=== PATIENT | male | born 1965 | race Caucasian/White ===

== ENCOUNTER → 2020-07-24 | Outpatient (CLI) | payer MEDICARE | LOC: HEART CORB 07-17 08:00 | DX: I20.8 Other forms of angina pectoris (principal); E11.9 Type 2 diabetes mellitus without complications; R06.02 Shortness of breath; I08.0 Rheumatic disorders of both mitral and aortic valves | CPT/HCPCS: 78452; 93306; A9502 ==

== ENCOUNTER 2021-03-24 16:19 | Inpatient (IN) | payer MEDICARE ==
[~2021-03-24] VITALS: Ht 180.3 cm; Wt 118.4 kg
[2021-03-24 18:19] LABS: HEMOGLOBIN 10.5 gm/dl (14.0-17.5); RED BLOOD COUNT 3.97 M/UL (4.20-5.50); WHITE BLOOD COUNT 11.1 K/UL (4.5-11.0)
[2021-03-24 18:53] LABS: BUN/CREATININE RATIO 30 (0-10)
[2021-03-25 06:36] LABS: HEMOGLOBIN 10.3 gm/dl (14.0-17.5); RED BLOOD COUNT 3.97 M/UL (4.20-5.50); WHITE BLOOD COUNT 11.2 K/UL (4.5-11.0)
[2021-03-25 06:44] LABS: BUN/CREATININE RATIO 29 (0-10)
[2021-03-25] MEDS ORDERED: CEFEPIME HCL2 GM INJ (09:53)
[2021-03-25] MEDS ORDERED: DESOWEN60 GM TP (09:54)
[2021-03-25] MEDS ORDERED: BUTALB-ACETAMI1 EAC1 PO (09:54)
[2021-03-25] MEDS ORDERED: HYDRALAZINE HCL10 MG PO (09:55)
[2021-03-25] MEDS ORDERED: IBU800 MG PO (09:55)
[2021-03-25] MEDS ORDERED: CLONIDINE HCL0.1 MG PO (09:55)
[2021-03-25] MEDS ORDERED: PANTOPRAZOLE SO20 MG PO (09:56)
[2021-03-25] MEDS ORDERED: ONDANSETRON ODT8 MG PO (09:56)
[2021-03-25] MEDS ORDERED: HYDROCODON-ACE1 EAC6 PO (09:57)
[2021-03-25] MEDS ORDERED: GABAPENTIN600 MG PO (09:57)
[2021-03-25] MEDS ORDERED: TIZANIDINE HCL4 MG PO (09:58)
[2021-03-25] MEDS ORDERED: HUMALOG100 UNIT/1 SQ (10:00)
[2021-03-26 05:21] LABS: HEMOGLOBIN 11.1 gm/dl (14.0-17.5); WHITE BLOOD COUNT 11.5 K/UL (4.5-11.0)
[2021-03-26 05:32] LABS: RED BLOOD COUNT 4.42 M/UL (4.20-5.50)
[2021-03-26 06:02] LABS: BUN/CREATININE RATIO 24 (0-10)
[2021-03-28 07:19] LABS: HEMOGLOBIN 10.5 gm/dl (14.0-17.5); RED BLOOD COUNT 4.06 M/UL (4.20-5.50); WHITE BLOOD COUNT 11.3 K/UL (4.5-11.0)
[2021-03-29 03:53] LABS: HEMOGLOBIN 10.2 gm/dl (14.0-17.5); RED BLOOD COUNT 3.93 M/UL (4.20-5.50)
[2021-03-30 12:15] LABS: RED BLOOD COUNT 3.82 M/UL (4.20-5.50); WHITE BLOOD COUNT 12.6 K/UL (4.5-11.0)
[2021-03-31 07:43] LABS: HEMOGLOBIN 10.3 gm/dl (14.0-17.5); RED BLOOD COUNT 3.94 M/UL (4.20-5.50); WHITE BLOOD COUNT 14.3 K/UL (4.5-11.0)
--- NOTE | 2021-03-31 15:42 | NUR ---
DRESSING CHANGE DONE PER MD ORDER
[2021-04-01 06:50] LABS: HEMOGLOBIN 9.4 gm/dl (14.0-17.5); RED BLOOD COUNT 3.6 M/UL (4.20-5.50); WHITE BLOOD COUNT 11.6 K/UL (4.5-11.0)
--- NOTE | 2021-04-01 14:20 | NUR ---
DRESSING CHANGED TO BILATERAL FEET PER MD ORDER
[2021-04-04] MEDS ORDERED: PANTOPRAZOLE SO20 MG PO (08:56)
[2021-04-04] MEDS ORDERED: BUTALB-ACETAMI1 EAC1 PO (08:56)
[2021-04-04] MEDS ORDERED: HUMALOG 10100 UNITS/ SC ×2 (09:07→12:51)
[2021-04-04] MEDS ORDERED: GABAPENTIN400 MG PO (09:07)
[2021-04-04] MEDS ORDERED: LOPRESSOR 50 MG50 MG PO (09:07)
[2021-04-04] MEDS ORDERED: LANTUS INS100 UTS/M1 SC (09:07)
[2021-04-04] MEDS ORDERED: OXYCONTIN20 MG PO (13:02)
[2021-04-04] MEDS ORDERED: PERCOCET 5/325 T1 EA PO (13:02)
[2021-04-04] MEDS ORDERED: LEVAQUIN I750 MG/150 IV (13:31)
[2021-04-04] MEDS ORDERED: AMPICILLIN-SULBA3 GM INJ (13:34)
--- NOTE | 2021-04-04 14:29 | NUR ---
WOUND CARE PERFORMED PER PHYSICIAN'S ORDER, PATIENT TOLERATED WELL.
--- NOTE | 2021-04-04 15:08 | NUR ---
REPORT CALLED TO LIBIA AT [facility].
== END 2021-04-04 14:46 | DRG 616 ==
LOC: ER1 16:19 → CDU 22:10 → M/S 22:10 → PROG CARE 03-25 09:57 → M/S 03-27 16:00
PROVIDERS: Internal Medicine; Physician Assistant Medical; Podiatrist Foot & Ankle Surgery; ADMIT Internal Medicine
PROC: 0JBQ0ZZ Excision of Right Foot Subcutaneous Tissue and Fascia, Open Approach (ICD-10-PCS; 2021-03-28)
PROC: 0Y6N0Z0 Detachment at Left Foot, Complete, Open Approach (ICD-10-PCS; principal; 2021-03-28 18:15)
PROC: 0Y6M0Z6 Detachment at Right Foot, Complete 3rd Ray, Open Approach (ICD-10-PCS; 2021-03-28 18:15)
DX: E11.69 Type 2 diabetes mellitus with other specified complication (principal); L89.893 Pressure ulcer of other site, stage 3; M86.8X7 Other osteomyelitis, ankle and foot; Z20.822 Contact with and (suspected) exposure to COVID-19; L03.115 Cellulitis of right lower limb; E87.2 Acidosis; E87.1 Hypo-osmolality and hyponatremia; I12.9 Hypertensive chronic kidney disease with stage 1 through stage 4 chronic kidney disease, or unspecified chronic kidney disease; N18.30 Chronic kidney disease, stage 3 unspecified; E87.5 Hyperkalemia; D72.829 Elevated white blood cell count, unspecified; E66.9 Obesity, unspecified; N17.9 Acute kidney failure, unspecified; K21.9 Gastro-esophageal reflux disease without esophagitis; M19.019 Primary osteoarthritis, unspecified shoulder; D63.1 Anemia in chronic kidney disease; F17.210 Nicotine dependence, cigarettes, uncomplicated; E11.621 Type 2 diabetes mellitus with foot ulcer; E11.51 Type 2 diabetes mellitus with diabetic peripheral angiopathy without gangrene; I25.10 Atherosclerotic heart disease of native coronary artery without angina pectoris; B95.61 Methicillin susceptible Staphylococcus aureus infection as the cause of diseases classified elsewhere; B96.89 Other specified bacterial agents as the cause of diseases classified elsewhere; Z79.4 Long term (current) use of insulin; Z95.5 Presence of coronary angioplasty implant and graft; Z89.422 Acquired absence of other left toe(s); Z90.49 Acquired absence of other specified parts of digestive tract; Z83.3 Family history of diabetes mellitus; Z68.36 Body mass index [BMI] 36.0-36.9, adult
CPT/HCPCS: 36415; 71045; 73630; 73718; 80048; 80053; 82272; 82550; 82553; 82607; 82746; 82962; 83036; 83540; 83550; 83605; 84100; 84484; 85025; 85045; 85652; 86140; 87040; 87070; 87077; 87186; 87205; 93922; 93925; 96365; 96375; 97110-GP-CQ; 97116-GP-CQ; 97161; 97530-GP-CQ; 99284; J0295; J1100; J1650; J1956; J2001; J2020; J2250; J2270; J2405; J2543; J2550; J2704; J2710; J2795; J3010; J3370; J7030; J7120; Q4133; U0002

== ENCOUNTER 2021-04-04 22:17 | Observation (INO) | payer MEDICARE ==
[~2021-04-04] VITALS: Ht 180.3 cm; Wt 118.8 kg
[~2021-04-04 22:17] MED LIST: AMPICILLIN-SULBA3 GM INJ; BUTALB-ACETAMI1 EAC1 PO; CEFEPIME HCL2 GM INJ; CLONIDINE HCL0.1 MG PO; DESOWEN60 GM TP; GABAPENTIN400 MG PO; GABAPENTIN600 MG PO; HUMALOG 10100 UNITS/ SC; HUMALOG100 UNIT/1 SQ; HYDRALAZINE HCL10 MG PO; HYDROCODON-ACE1 EAC6 PO; IBU800 MG PO; LANTUS INS100 UTS/M1 SC; LEVAQUIN I750 MG/150 IV; LOPRESSOR 50 MG50 MG PO; ONDANSETRON ODT8 MG PO; OXYCONTIN20 MG PO; PANTOPRAZOLE SO20 MG PO; PERCOCET 5/325 T1 EA PO; TIZANIDINE HCL4 MG PO
[2021-04-04 23:36] LABS: RED BLOOD COUNT 4.15 M/UL (4.20-5.50); WHITE BLOOD COUNT 12.4 K/UL (4.5-11.0)
[2021-04-06 08:47] LABS: RED BLOOD COUNT 3.83 M/UL (4.20-5.50); WHITE BLOOD COUNT 10.4 K/UL (4.5-11.0)
[2021-04-06 09:16] LABS: BUN/CREATININE RATIO 14 (0-10)
--- NOTE | 2021-04-08 17:59 | NUR ---
PT AWARE CONSULT FOR NEPHROLOGY .
--- NOTE | 2021-04-08 18:22 | NUR ---
PT'S DRESSING CDI . RECEIVED FROM REPORT THAQT DSG WAS CHANGED TODAY.
[2021-04-09 06:36] LABS: HEMOGLOBIN 10.2 gm/dl (14.0-17.5); RED BLOOD COUNT 3.91 M/UL (4.20-5.50)
--- NOTE | 2021-04-09 15:16 | NUR ---
DR PEARCE AT BEDSIDE, PT WILL HAVE GROSHONG PLACED TOMORROW AFTER HOLDING ELIQUIS TODAY.
[2021-04-10 11:14] LABS: CREATININE, URINE 52.8 mg/dL (Not Estab.)
--- NOTE | 2021-04-10 12:29 | NUR ---
PT OFF UNIT FOR GROSHONG PLACEMENT, CONSENTS SIGNED AND PREOP PAPERWORK COMPLETED.
--- NOTE | 2021-04-10 17:59 | NUR ---
pt has returned from or with a left chest wall groshong.
[2021-04-11 07:04] LABS: HEMOGLOBIN 11.4 gm/dl (14.0-17.5)
[2021-04-11 07:05] LABS: RED BLOOD COUNT 4.43 M/UL (4.20-5.50); WHITE BLOOD COUNT 12.3 K/UL (4.5-11.0)
[2021-04-11] MEDS ORDERED: LOPRESSOR100 MG PO (11:25)
[2021-04-11] MEDS ORDERED: LEVOFLOXACIN500 MG PO (11:25)
[2021-04-11] MEDS ORDERED: CLONIDINE HCL0.2 MG PO (11:25)
[2021-04-11] MEDS ORDERED: AMPICILLIN-SULBA3 GM INJ (11:26)
== END 2021-04-11 13:52 | disposition home or self-care (01) ==
LOC: ER1 22:17 → M/S 04-05 00:01 → CDU 04-05 00:01 → MED SURG 4 04-05 00:01 → M/S 04-05 00:01 → MED SURG 4 04-08 11:14
PROVIDERS: Family Medicine; Internal Medicine; Internal Medicine Infectious Disease; Surgery; ADMIT Internal Medicine
PROC: 02HV33Z Insertion of Infusion Device into Superior Vena Cava, Percutaneous Approach (ICD-10-PCS; principal; 2021-04-10 12:15)
DX: E11.69 Type 2 diabetes mellitus with other specified complication (principal); M86.671 Other chronic osteomyelitis, right ankle and foot; M86.672 Other chronic osteomyelitis, left ankle and foot; M86.172 Other acute osteomyelitis, left ankle and foot; M86.171 Other acute osteomyelitis, right ankle and foot; E11.621 Type 2 diabetes mellitus with foot ulcer; L97.529 Non-pressure chronic ulcer of other part of left foot with unspecified severity; L97.519 Non-pressure chronic ulcer of other part of right foot with unspecified severity; E11.51 Type 2 diabetes mellitus with diabetic peripheral angiopathy without gangrene; I13.11 Hypertensive heart and chronic kidney disease without heart failure, with stage 5 chronic kidney disease, or end stage renal disease; E11.22 Type 2 diabetes mellitus with diabetic chronic kidney disease; N18.31 Chronic kidney disease, stage 3a; D63.1 Anemia in chronic kidney disease; E11.40 Type 2 diabetes mellitus with diabetic neuropathy, unspecified; K21.9 Gastro-esophageal reflux disease without esophagitis; G89.29 Other chronic pain; M54.9 Dorsalgia, unspecified; H35.00 Unspecified background retinopathy; R78.81 Bacteremia; B95.61 Methicillin susceptible Staphylococcus aureus infection as the cause of diseases classified elsewhere; B96.89 Other specified bacterial agents as the cause of diseases classified elsewhere; B95.2 Enterococcus as the cause of diseases classified elsewhere; E66.9 Obesity, unspecified; Z68.36 Body mass index [BMI] 36.0-36.9, adult; Z20.822 Contact with and (suspected) exposure to COVID-19; Z87.442 Personal history of urinary calculi; Z87.891 Personal history of nicotine dependence; Z89.422 Acquired absence of other left toe(s); Z89.421 Acquired absence of other right toe(s); Z79.2 Long term (current) use of antibiotics; Z53.29 Procedure and treatment not carried out because of patient's decision for other reasons; Z79.4 Long term (current) use of insulin
CPT/HCPCS: 36415; 73630; 77001; 80048; 80053; 81001; 82043; 82550; 82553; 82570; 82728; 82962; 83540; 83550; 83605; 84156; 84484; 85025; 85652; 86140; 87040; 96365; 96372; 96375; 96376; 97110; 97161; 99285; C1751; C1769; G0378; J0295; J1100; J1642; J1650; J1756; J1956; J2001; J2250; J2405; J2550; J2704; J3010; J7030; J7050; J7120; Q9967; U0002

== ENCOUNTER 2021-04-29 21:30 | Emergency (ER) | payer MEDICARE ==
[2021-04-29 20:44] LABS: HEMOGLOBIN 10.6 gm/dl (14.0-17.5); RED BLOOD COUNT 4.16 M/UL (4.20-5.50); WHITE BLOOD COUNT 11.5 K/UL (4.5-11.0)
[2021-04-29 21:09] LABS: BUN/CREATININE RATIO 17 (0-10)
[~2021-04-29 21:30] MED LIST changes: +CLONIDINE HCL0.2 MG PO; +LEVOFLOXACIN500 MG PO; +LOPRESSOR100 MG PO
[2021-04-30] MEDS ORDERED: HYDROCODON-ACE1 EAC6 PO (01:08)
== END 2021-04-30 01:55 | disposition home or self-care (01) ==
LOC: ER1 21:30
PROVIDERS: Physician Assistant
DX: R06.02 Shortness of breath (principal); G89.4 Chronic pain syndrome; M79.672 Pain in left foot; E78.5 Hyperlipidemia, unspecified; E11.42 Type 2 diabetes mellitus with diabetic polyneuropathy; Z89.422 Acquired absence of other left toe(s)
CPT/HCPCS: 80053; 82550; 82553; 83874; 83880; 84484; 85025; 85610; 85730; 93005; 96374; 96375; 99285; J2270; J2405; Q9967

== ENCOUNTER → 2021-07-18 | Outpatient (CLI) | payer MEDICARE | LOC: LBRF 11:59 | DX: E11.628 Type 2 diabetes mellitus with other skin complications (principal); S91.301A Unspecified open wound, right foot, initial encounter | CPT/HCPCS: 87070; 87205 ==

== ENCOUNTER 2021-08-02 12:11 | Inpatient (IN) | payer MEDICARE ==
[~2021-08-02] VITALS: Ht 180.3 cm; Wt 120.2 kg
[~2021-08-02 12:11] MED LIST changes: -DESOWEN60 GM TP; -TIZANIDINE HCL4 MG PO
[2021-08-02 13:20] LABS: HEMOGLOBIN 14.9 gm/dl (14.0-17.5); RED BLOOD COUNT 5.82 M/UL (4.20-5.50); WHITE BLOOD COUNT 13.6 K/UL (4.5-11.0)
[2021-08-03 03:40] LABS: HEMOGLOBIN 14.2 gm/dl (14.0-17.5); RED BLOOD COUNT 5.6 M/UL (4.20-5.50); WHITE BLOOD COUNT 12.1 K/UL (4.5-11.0)
[2021-08-03] MEDS ORDERED: DESOWEN60 GM TP (09:54)
[2021-08-03] MEDS ORDERED: TIZANIDINE HCL4 MG PO (09:58)
[2021-08-03] MEDS ORDERED: CATAPRES 0.1MG0.1 MG PO (10:35)
[2021-08-03] MEDS ORDERED: HYDROXYZINE HCL50 MG PO (10:36)
[2021-08-03] MEDS ORDERED: NEURONTIN600 MG PO (10:38)
[2021-08-03] MEDS ORDERED: HYDROCODON-ACE1 EAC6 PO (10:40)
[2021-08-03] MEDS ORDERED: ZESTRIL30 MG PO (10:41)
[2021-08-03] MEDS ORDERED: BUMETANIDE1 MG PO (10:42)
[2021-08-03] MEDS ORDERED: NOVOLOG 10100 UNITS/ INJ (10:49)
[2021-08-03] MEDS ORDERED: TRESIBA FL100 UNIT/1 SC (10:50)
[2021-08-03] MEDS ORDERED: HYDRALAZINE HCL10 MG PO (10:50)
[2021-08-04 03:29] LABS: HEMOGLOBIN 13.4 gm/dl (14.0-17.5); RED BLOOD COUNT 5.2 M/UL (4.20-5.50)
[2021-08-04 03:31] LABS: WHITE BLOOD COUNT 15.6 K/UL (4.5-11.0)
[2021-08-04] MEDS ORDERED: SUCRALFATE1 GM/10 ML PO (17:28)
[2021-08-04] MEDS ORDERED: PROTONIX 40 MG40 M1 PO (17:28)
[2021-08-05 07:05] LABS: HEMOGLOBIN 12.9 gm/dl (14.0-17.5); RED BLOOD COUNT 4.84 M/UL (4.20-5.50); WHITE BLOOD COUNT 11.8 K/UL (4.5-11.0)
== END 2021-08-05 16:42 | disposition home or self-care (01) | DRG 381 ==
LOC: ER1 12:11 → MED SURG 4 17:20 → CDU 17:20 → MED SURG 4 17:20
PROVIDERS: Internal Medicine Gastroenterology; Physician Assistant; Physician Assistant Medical; ADMIT Internal Medicine Infectious Disease
PROC: 0DB78ZX Excision of Stomach, Pylorus, Via Natural or Artificial Opening Endoscopic, Diagnostic (ICD-10-PCS; principal; 2021-08-04 08:45)
DX: K22.10 Ulcer of esophagus without bleeding (principal); E87.1 Hypo-osmolality and hyponatremia; N17.9 Acute kidney failure, unspecified; I12.9 Hypertensive chronic kidney disease with stage 1 through stage 4 chronic kidney disease, or unspecified chronic kidney disease; Z20.822 Contact with and (suspected) exposure to COVID-19; E86.0 Dehydration; E11.22 Type 2 diabetes mellitus with diabetic chronic kidney disease; E11.51 Type 2 diabetes mellitus with diabetic peripheral angiopathy without gangrene; N18.30 Chronic kidney disease, stage 3 unspecified; Z79.4 Long term (current) use of insulin; E11.43 Type 2 diabetes mellitus with diabetic autonomic (poly)neuropathy; K31.84 Gastroparesis; K76.0 Fatty (change of) liver, not elsewhere classified; K21.00 Gastro-esophageal reflux disease with esophagitis, without bleeding; Z87.442 Personal history of urinary calculi; Z89.432 Acquired absence of left foot; Z89.431 Acquired absence of right foot; Z98.890 Other specified postprocedural states; Z87.891 Personal history of nicotine dependence; Z83.3 Family history of diabetes mellitus
CPT/HCPCS: 36415; 71045; 80048; 80053; 82550; 82553; 82962; 83605; 83690; 83735; 84484; 85025; 85027; 93005; 96365; 96375; 96376; 99285; C9113; G0378; J1170; J2270; J2405; J2550; J2704; J7040; U0002

== ENCOUNTER 2021-09-30 18:37 | Inpatient (IN) | payer MEDICARE ==
[~2021-09-30] VITALS: Ht 182.9 cm; Wt 120.4 kg
[~2021-09-30 18:37] MED LIST changes: +BUMETANIDE1 MG PO; +CATAPRES 0.1MG0.1 MG PO; +DESOWEN60 GM TP; +HYDROXYZINE HCL50 MG PO; +NEURONTIN600 MG PO; +NOVOLOG 10100 UNITS/ INJ; +PROTONIX 40 MG40 M1 PO; +SUCRALFATE1 GM/10 ML PO; +TIZANIDINE HCL4 MG PO; +TRESIBA FL100 UNIT/1 SC; +ZESTRIL30 MG PO
[2021-09-30 23:39] LABS: HEMOGLOBIN 10.4 gm/dl (14.0-17.5); RED BLOOD COUNT 3.85 M/UL (4.20-5.50); WHITE BLOOD COUNT 9.8 K/UL (4.5-11.0)
--- NOTE | 2021-10-01 02:32 | NUR ---
0200 REAPPLIED GAUZE AND ADHERENT PADS TO BILATERAL LEGS AND BILATERAL FEET. WHEN REDRESSING LEFT FOOT PACKING HAD CAME OUT OF THE LEFT FOOT. PT TOLERATED WELL.
[2021-10-01] MEDS ORDERED: TIZANIDINE HCL4 MG PO (09:39)
[2021-10-01] MEDS ORDERED: KENALOG 0.5% CR15 GM EXT (09:43)
[2021-10-01] MEDS ORDERED: HYDRALAZINE HCL50 MG PO (09:50)
[2021-10-01] MEDS ORDERED: HYDROXYZINE HCL10 MG PO (09:51)
[2021-10-01] MEDS ORDERED: BUTALB-ACETAMI1 EAC1 PO (09:58)
[2021-10-02 02:49] LABS: HEMOGLOBIN 10.9 gm/dl (14.0-17.5); RED BLOOD COUNT 4.05 M/UL (4.20-5.50)
[2021-10-02 06:40] LABS: HEMOGLOBIN 10.8 gm/dl (14.0-17.5); RED BLOOD COUNT 4.05 M/UL (4.20-5.50); WHITE BLOOD COUNT 14.3 K/UL (4.5-11.0)
[2021-10-03 05:03] LABS: HEMOGLOBIN 10.1 gm/dl (14.0-17.5); RED BLOOD COUNT 3.74 M/UL (4.20-5.50)
[2021-10-04 08:16] LABS: HBSAG SCREEN Negative (Negative); HCV AB 0.3 (0.0-0.9); HEP A AB, IGM Negative (Negative); HEP B CORE AB, IGM Negative (Negative)
[2021-10-05 02:08] LABS: HEMOGLOBIN 9.1 gm/dl (14.0-17.5); RED BLOOD COUNT 3.37 M/UL (4.20-5.50)
[2021-10-06 02:58] LABS: RED BLOOD COUNT 3.34 M/UL (4.20-5.50); WHITE BLOOD COUNT 8.4 K/UL (4.5-11.0)
[2021-10-09 02:24] LABS: RED BLOOD COUNT 3.36 M/UL (4.20-5.50); WHITE BLOOD COUNT 11.3 K/UL (4.5-11.0)
--- NOTE | 2021-10-11 17:04 | NUR ---
CONTACTED DR. CASTRO, PER DR. CAMPBELL DUE TO THE PT'S DISTENTION IN THE ABDOMEN, UPPER AND LOWER EXTREMITIES AND THE SCROTUM AND PENIS. DR. CASTRO STATED THAT THE CREATININE HAS LOWERED AND HE HAD SIGNED OFF ON THE PT YESTERDAY. INSTRUCTED PER DR. CASTRO TO GIVE THE PT LASIX 40MG IVP. WILL CONTINUE TO MONITOR THE PT.
--- NOTE | 2021-10-13 14:31 | NUR ---
patient complaints of swelling on his abdomen and scrotal area that dr. warner aware of and received instructions to notify materials branch chief
--- NOTE | 2021-10-13 14:53 | NUR ---
reported tp dr. Dixon c/o dr. warner of patient increase swelling on abdomen and scrotal area- he acknowledged.
[2021-10-15 07:27] LABS: HEMOGLOBIN 9.9 gm/dl (14.0-17.5); RED BLOOD COUNT 3.75 M/UL (4.20-5.50); WHITE BLOOD COUNT 15.4 K/UL (4.5-11.0)
[2021-10-15 10:17] LABS: CREATININE, URINE 86.8 mg/dL (Not Estab.)
[2021-10-16 08:04] LABS: HEMOGLOBIN 9.5 gm/dl (14.0-17.5); RED BLOOD COUNT 3.58 M/UL (4.20-5.50)
[2021-10-16 08:05] LABS: WHITE BLOOD COUNT 10.3 K/UL (4.5-11.0)
[2021-10-17 06:36] LABS: WHITE BLOOD COUNT 11.3 K/UL (4.5-11.0)
[2021-10-17 06:46] LABS: RED BLOOD COUNT 4.16 M/UL (4.20-5.50)
[2021-10-18 02:06] LABS: HEMOGLOBIN 9.5 gm/dl (14.0-17.5); RED BLOOD COUNT 3.59 M/UL (4.20-5.50); WHITE BLOOD COUNT 10.6 K/UL (4.5-11.0)
[2021-10-19 02:26] LABS: HEMOGLOBIN 10.3 gm/dl (14.0-17.5); RED BLOOD COUNT 3.81 M/UL (4.20-5.50); WHITE BLOOD COUNT 11.1 K/UL (4.5-11.0)
[2021-10-20 03:09] LABS: HEMOGLOBIN 10.7 gm/dl (14.0-17.5); RED BLOOD COUNT 3.96 M/UL (4.20-5.50); WHITE BLOOD COUNT 11.7 K/UL (4.5-11.0)
[2021-10-21 03:14] LABS: HEMOGLOBIN 10.7 gm/dl (14.0-17.5); RED BLOOD COUNT 3.99 M/UL (4.20-5.50); WHITE BLOOD COUNT 12.6 K/UL (4.5-11.0)
[2021-10-22 02:53] LABS: HEMOGLOBIN 11.6 gm/dl (14.0-17.5); RED BLOOD COUNT 4.31 M/UL (4.20-5.50); WHITE BLOOD COUNT 11.8 K/UL (4.5-11.0)
--- NOTE | 2021-10-22 16:32 | NUR ---
ORDER PLACED BY OUMOU FOR DR CHEUNG IS ON THE WRONG PATIENT HE IS NOT CONSULTED FOR THIS PATIENT I CANCELLED THE ORDER FOR TRANSFUSION.
[2021-10-22] MEDS ORDERED: LOPRESSOR 50 MG50 MG PO (16:50)
[2021-10-22] MEDS ORDERED: FLOMAX 0.4 MG0.4 MG PO (16:50)
[2021-10-22] MEDS ORDERED: BUMETANIDE1 MG PO (16:50)
[2021-10-22] MEDS ORDERED: ASPIRIN EC81 MG PO (16:50)
[2021-10-22] MEDS ORDERED: LIPITOR40 MG PO (16:50)
[2021-10-22] MEDS ORDERED: CLONIDINE HCL0.2 MG PO (16:50)
[2021-10-22] MEDS ORDERED: HYDRALAZINE HCL50 MG PO (16:50)
== END 2021-10-22 18:51 | disposition home or self-care (01) | DRG 463 ==
LOC: MED SURG 4 19:58 → M/S 19:58 → PROG CARE 19:58 → M/S 10-09 17:20
PROVIDERS: Internal Medicine; Internal Medicine Infectious Disease; Internal Medicine Nephrology; Podiatrist Foot & Ankle Surgery; ADMIT Internal Medicine
PROC: B24BZZZ Ultrasonography of Heart with Aorta (ICD-10-PCS; 2021-10-02)
PROC: 4A023FZ Measurement of Cardiac Rhythm, Percutaneous Approach (ICD-10-PCS; 2021-10-02)
PROC: 02K83ZZ Map Conduction Mechanism, Percutaneous Approach (ICD-10-PCS; 2021-10-02)
PROC: 02583ZZ Destruction of Conduction Mechanism, Percutaneous Approach (ICD-10-PCS; 2021-10-02)
PROC: 4A0234Z Measurement of Cardiac Electrical Activity, Percutaneous Approach (ICD-10-PCS; 2021-10-02)
PROC: 3E043XZ Introduction of Vasopressor into Central Vein, Percutaneous Approach (ICD-10-PCS; 2021-10-03)
PROC: 0Y6V0Z0 Detachment at Right 4th Toe, Complete, Open Approach (ICD-10-PCS; 2021-10-08)
PROC: 0Y6X0Z0 Detachment at Right 5th Toe, Complete, Open Approach (ICD-10-PCS; 2021-10-08)
PROC: 0JBR0ZZ Excision of Left Foot Subcutaneous Tissue and Fascia, Open Approach (ICD-10-PCS; principal; 2021-10-08 16:45)
DX: T87.54 Necrosis of amputation stump, left lower extremity (principal); N17.0 Acute kidney failure with tubular necrosis; A41.9 Sepsis, unspecified organism; R65.21 Severe sepsis with septic shock; Z20.822 Contact with and (suspected) exposure to COVID-19; I48.92 Unspecified atrial flutter; E11.52 Type 2 diabetes mellitus with diabetic peripheral angiopathy with gangrene; B37.41 Candidal cystitis and urethritis; M86.671 Other chronic osteomyelitis, right ankle and foot; E87.1 Hypo-osmolality and hyponatremia; I31.3 Pericardial effusion (noninflammatory); I13.0 Hypertensive heart and chronic kidney disease with heart failure and stage 1 through stage 4 chronic kidney disease, or unspecified chronic kidney disease; I50.32 Chronic diastolic (congestive) heart failure; E87.6 Hypokalemia; E11.21 Type 2 diabetes mellitus with diabetic nephropathy; R33.9 Retention of urine, unspecified; E87.5 Hyperkalemia; E11.319 Type 2 diabetes mellitus with unspecified diabetic retinopathy without macular edema; G47.33 Obstructive sleep apnea (adult) (pediatric); E66.01 Morbid (severe) obesity due to excess calories; E11.42 Type 2 diabetes mellitus with diabetic polyneuropathy; E11.22 Type 2 diabetes mellitus with diabetic chronic kidney disease; N18.32 Chronic kidney disease, stage 3b; E11.621 Type 2 diabetes mellitus with foot ulcer; Y83.9 Surgical procedure, unspecified as the cause of abnormal reaction of the patient, or of later complication, without mention of misadventure at the time of the procedure; Z79.4 Long term (current) use of insulin; Z79.01 Long term (current) use of anticoagulants; Z79.82 Long term (current) use of aspirin; Z87.442 Personal history of urinary calculi; Z90.49 Acquired absence of other specified parts of digestive tract; Z98.890 Other specified postprocedural states; Z83.3 Family history of diabetes mellitus; Z87.891 Personal history of nicotine dependence
CPT/HCPCS: 36415; 71045; 73718; 73721; 76705; 80048; 80053; 80074; 80202; 81001; 82043; 82550; 82553; 82570; 82728; 82803; 82962; 83540; 83550; 83735; 83880; 84156; 84439; 84443; 84484; 85025; 85610; 85652; 85730; 86140; 87040; 87070; 87086; 87205; 93005; 93312; 93320; 93609; 93620; 93621; 93925; 94640; 94664; 94760; 99152; 99153; C1730; C1733; C1766; J1100; J1120; J1160; J1170; J1200; J1205; J1335; J1644; J1650; J1940; J2001; J2185; J2250; J2270; J2370; J2405; J2550; J2704; J2795; J3010; J3370; J3475; J7030; J7040; J7070; J7120; P9047; Q0177; Q4133; U0002

== ENCOUNTER → 2021-12-10 | Outpatient (CLI) | payer MEDICARE ==
[~2021-12-10] MED LIST changes: +ASPIRIN EC81 MG PO; +FLOMAX 0.4 MG0.4 MG PO; +HYDRALAZINE HCL50 MG PO; +HYDROXYZINE HCL10 MG PO; +KENALOG 0.5% CR15 GM EXT; +LIPITOR40 MG PO
== END ==
LOC: EXRD 10:30 → US 16:00
DX: I77.9 Disorder of arteries and arterioles, unspecified (principal); I73.9 Peripheral vascular disease, unspecified
CPT/HCPCS: 93926; 93971

== ENCOUNTER 2021-12-22 09:56 | Emergency (ER) | payer MEDICARE ==
[~2021-12-22] VITALS: Ht 180.3 cm; Wt 120.2 kg
[~2021-12-22 09:56] MED LIST changes: +BASAGLAR K100 UNIT/1 SQ; -HYDROXYZINE HCL10 MG PO; +HYDROXYZINE HCL25 MG PO; -TRESIBA FL100 UNIT/1 SC
[2021-12-22 10:59] LABS: HEMOGLOBIN 13.1 gm/dl (14.0-17.5); RED BLOOD COUNT 4.91 M/UL (4.20-5.50); WHITE BLOOD COUNT 18.2 K/UL (4.5-11.0)
[2021-12-22] MEDS ORDERED: BACTRIM DS TAB1 EACH PO (14:27)
[2021-12-22] MEDS ORDERED: CLINDAMYCIN HC300 MG PO (14:27)
[2021-12-22] MEDS ORDERED: LEVOFLOXACIN750 MG PO (14:28)
[2021-12-22] MEDS ORDERED: LISINOPRIL30 MG PO (14:28)
[2021-12-22] MEDS ORDERED: CLONIDINE HCL0.1 MG PO (14:28)
[2021-12-22] MEDS ORDERED: CETIRIZINE HCL10 MG PO (14:30)
[2021-12-22] MEDS ORDERED: FAMOTIDINE20 MG PO (14:30)
[2021-12-22] MEDS ORDERED: LIDOCAINE30 G1 TOP (14:31)
[2021-12-23 03:14] LABS: HEMOGLOBIN 10.8 gm/dl (14.0-17.5); RED BLOOD COUNT 4.14 M/UL (4.20-5.50)
== END 2021-12-23 22:00 | disposition short-term general hospital (02) ==
LOC: ER1 09:56
PROVIDERS: Emergency Medicine; Physician Assistant Medical
DX: A41.9 Sepsis, unspecified organism (principal); L03.116 Cellulitis of left lower limb; L03.115 Cellulitis of right lower limb; E11.51 Type 2 diabetes mellitus with diabetic peripheral angiopathy without gangrene; E11.22 Type 2 diabetes mellitus with diabetic chronic kidney disease; I12.9 Hypertensive chronic kidney disease with stage 1 through stage 4 chronic kidney disease, or unspecified chronic kidney disease; N18.9 Chronic kidney disease, unspecified; E11.621 Type 2 diabetes mellitus with foot ulcer; L97.529 Non-pressure chronic ulcer of other part of left foot with unspecified severity; L97.519 Non-pressure chronic ulcer of other part of right foot with unspecified severity; Z89.429 Acquired absence of other toe(s), unspecified side; R00.0 Tachycardia, unspecified; Z87.442 Personal history of urinary calculi; Z89.421 Acquired absence of other right toe(s); E87.1 Hypo-osmolality and hyponatremia; K21.9 Gastro-esophageal reflux disease without esophagitis
CPT/HCPCS: 70450; 71045; 73630; 80053; 80202; 81001; 82550; 82553; 82962; 83605; 83735; 84132; 84484; 85025; 85027; 85652; 86140; 87040; 87086; 93925; 96361; 96365; 96366; 96375; 96376; 99285; C9113; J2185; J2270; J2543; J3370; J7070; U0002